=== PATIENT | male | born 1950 | race Caucasian/White ===

== ENCOUNTER 2016-09-07 04:08 | Emergency (ER) | payer OTHER, BC ==
[~2016-09-07] VITALS: Ht 172.7 cm; Wt 88.1 kg
[~2016-09-07 04:08] MED LIST: ASPIRIN325 MG PO; ATORVASTATIN CA40 MG PO; AVAPRO150 MG PO; MEDROL DOSEPAK4 MG PO; MEN'S MULTI-VI1 EACH PO; NAPROSYN500 MG PO; NIZATIDINE150 MG PO; PRAVASTATIN SOD40 MG PO; VITAMIN D31000 UNIT PO; ZITHROMAX250 MG PO
[2016-09-07] MEDS ORDERED: FLONASE16 G1 BOTH NARES (04:37)
[2016-09-07] MEDS ORDERED: AUGMENTIN875 MG PO (04:37)
[2016-09-07 04:53] VITALS: BP 158/78
== END 2016-09-07 04:53 | disposition home or self-care (01) ==
LOC: EME 04:08
DX: J01.90 Acute sinusitis, unspecified (principal)
CPT/HCPCS: 99281; 99283